=== PATIENT | male | born 1970 | race Caucasian/White ===

== ENCOUNTER 2018-07-02 01:10 | Emergency (ER) | payer OTHER ==
[2018-07-02 01:18] VITALS: RESP 14
[2018-07-02] MEDS ORDERED: ONDANSETRON HCL 4 MG/2 ML SOL IV ONE ×2 (01:24→03:27)
[2018-07-02] MEDS ORDERED: SODIUM CHLORIDE 0.9% 1000ML 1,000 ML IV ONE ×4 (01:24→03:56)
[2018-07-02] MEDS ORDERED: ONDANSETRON HCL 4 MG/2 ML SOL ONE ×2 (01:26→03:30)
[2018-07-02 01:45] LABS: BASOPHILS % (AUTO) 1 % (0-3); EOSINOPHILS % (AUTO) 3 % (0-9); HEMATOCRIT 45 % (39-53); HEMOGLOBIN 14.8 gm/dl (13.5-17.7); MEAN CORPUSCULAR HEMOGLOBIN 28.8 pg (27.0-32.0); MEAN CORPUSCULAR HGB CONC 33.1 gm/dl (32.0-36.0); MEAN CORPUSCULAR VOLUME 87 fL (80-100); MONOCYTES % (AUTO) 8.3 % (0-12)
[2018-07-02 02:00] LABS: ALBUMIN 3.9 gm/dl (3.4-5.0); BILIRUBIN,TOTAL 0.3 mg/dl (0.2-1.0); CARBON DIOXIDE 25.4 mEq/L (21-32); POTASSIUM 3.4 mMol/L (3.5-5.1); TOTAL PROTEIN 7.1 gm/dl (6.4-8.2)
[2018-07-02 02:01] LABS: ALCOHOL 0.229 gm/dl (0.000-0.08)
[2018-07-02] MEDS ORDERED: POTASSIUM CHLORIDE 10 MEQ TER PO ONE (02:17)
[2018-07-02] MEDS ORDERED: POTASSIUM CHLORIDE 10 MEQ TER ONE (02:20)
[2018-07-02] MEDS ORDERED: PANTOPRAZOLE SODIUM 40 MG/10 ML PDS IV ONE (03:31)
[2018-07-02] MEDS ORDERED: PANTOPRAZOLE SODIUM 40 MG/10 ML PDS ONE (03:31)
[2018-07-02 03:58] LABS: MAGNESIUM 1.8 mg/dl (1.8-2.4); TROP I < 0.017 ng/ml (0.000-0.056)
[2018-07-02 03:59] LABS: ALCOHOL 0.196 gm/dl (0.000-0.08)
[2018-07-02] MEDS ORDERED: PROMETHAZINE HYDROCHLORIDE 25 MG/ML SOL IV ONE (04:04)
[2018-07-02] MEDS ORDERED: PROMETHAZINE HYDROCHLORIDE 25 MG/ML SOL ONE (04:05)
[2018-07-02 04:17] LABS: APPEARANCE,URINE Clear; BILIRUBIN,URINE NEGATIVE (NEGATIVE); COLOR,URINE Yellow; GLUCOSE, URINE (UA) NEGATIVE (NEGATIVE); KETONES,URINE NEGATIVE (NEGATIVE); LEUKOCYTE ESTERASE ,URINE NEGATIVE (NEGATIVE); NITRATE,URINE NEGATIVE (NEGATIVE); OCCULT BLOOD,URINE NEGATIVE (NEG-TRACE); UROBILINOGEN,URINE 0.2 (0.2-1.0 EU)
[2018-07-02 04:35] LABS: AMPHETAMINES NEGATIVE (NEGATIVE); BACTERIA TRACE (< 1+); BARBITUATES NEGATIVE (NEGATIVE); BENZODIAZEPINES NEGATIVE (NEGATIVE); CANNABINOL(THC) POSITIVE (NEGATIVE); COCAINE(COC) NEGATIVE (NEGATIVE); CRYSTALS NEGATIVE (0-3 AVE/HPF); EPITHELIAL CELLS 0-1 (SQUAMOUS); METHADONE NEGATIVE (NEGATIVE); METHAMPHETAMINES NEGATIVE (NEGATIVE); OPIATES(OPI) NEGATIVE (NEGATIVE); OXYCODONE(OXY) NEGATIVE (NEGATIVE); PROPOXYPHENE(PPX) NEGATIVE (NEGATIVE); RBC,URINE NEG (0-3AV/HPF); TRICYCLIC ANTIDEPRESSANTS NEGATIVE (NEGATIVE); WBC,URINE 0-1 (0-5AV/HPF)
[2018-07-02 06:32] VITALS: BP 106/73; PULSE 81; O2SAT 90
== END 2018-07-02 06:15 | disposition home or self-care (01) | DRG 392 ==
LOC: ED 01:10
DX: R11.10 Vomiting, unspecified (principal); F10.10 Alcohol abuse, uncomplicated; Y90.7 Blood alcohol level of 200-239 mg/100 ml; F12.90 Cannabis use, unspecified, uncomplicated
CPT/HCPCS: 36415; 51798; 80053; 80305; 80307; 81001; 83735; 84484; 85025; 93005; 96365; 96366; 96374; 96375; 99283; 99285; J2405; J2550; A9270-GY